=== PATIENT | female | born 1970 | race Two or more races ===

== ENCOUNTER 2023-01-26 08:08 | Emergency (ER) | payer OTHER ==
[~2023-01-26] VITALS: Ht 157.5 cm; Wt 90.7 kg
[2023-01-26] MEDS ORDERED: KEPPRA500 MG PO (08:14)
[2023-01-26] MEDS ORDERED: LOTREL 5-10 MG1 CAP (08:14)
== END 2023-01-26 14:15 | disposition home or self-care (01) ==
LOC: ER 08:08
DX: R10.2 Pelvic and perineal pain (principal)